=== PATIENT | male | born 1975 | race American Indian/Alaskan Native ===

== ENCOUNTER 2021-10-29 20:09 | Emergency (ER) | payer SELFPAY ==
[2021-10-30] MEDS ORDERED: dexAMETHasone 4 MG/ML VIAL IM ONE (03:23)
[2021-10-30] MEDS ORDERED: PENICILLIN G BENZATHINE 1.2 MILLION UNIT/2 ML INJ IM STA (03:23)
[2021-10-30] MEDS ORDERED: oxyCODONE /ACETAMINOPHEN 5-325MG TAB PO ONE (03:24)
--- NOTE | 2021-10-30 04:19 | Emergency Department Report ---
ED ENT HPI - General Chief complaint: Sore Throat Stated complaint: SORE THROAT Time Seen by Provider: 10/30/21 02:14 Source: patient Mode of arrival: Ambulatory Limitations: No Limitations - History of Present Illness Initial comments: 46-year-old male presents emerged department complaining of a few day history of progressive worsening sore throat with pain to the neck and left-sided face. Pain began to radiate to the left ear from time to time associated with fever sensation. Reports no chest pain, no palpitations, no nausea, no vomiting, no diarrhea, no constipation, no rashes. MD complaint: sore throat -: Gradual Location: throat Severity: mild, moderate Quality: dull Improves with: none Worsens with: swallowing, eating - Related Data Previous Rx's Medication Instructions Recorded Last Taken Type Ketorolac [Toradol] 10 mg PO Q6H PRN #15 tablet 10/30/21 Unknown Rx Lidocaine Viscous 2% 5 ml MM Q3H PRN #120 udc 10/30/21 Unknown Rx Allergies Allergy/AdvReac Type Severity Reaction Status Date / Time No Known Allergies Allergy Unverified 10/29/21 20:20 ED Dental HPI - General Chief complaint: Sore Throat Stated complaint: SORE THROAT Time Seen by Provider: 10/30/21 02:14 Source: patient Mode of arrival: Ambulatory Limitations: No Limitations - Related Data Previous Rx's Medication Instructions Recorded Last Taken Type Ketorolac [Toradol] 10 mg PO Q6H PRN #15 tablet 10/30/21 Unknown Rx Lidocaine Viscous 2% 5 ml MM Q3H PRN #120 udc 10/30/21 Unknown Rx Allergies Allergy/AdvReac Type Severity Reaction Status Date / Time No Known Allergies Allergy Unverified 10/29/21 20:20 ED Review of Systems ROS: Stated complaint: SORE THROAT Other details as noted in HPI Comment: All other systems reviewed and negative ED Past Medical Hx - Past Medical History Previous Medical History?: No - Surgical History Past Surgical History?: No - Medications Home Medications: Home Medications Medication Instructions Recorded Confirmed Last Taken Type Ketorolac [Toradol] 10 mg PO Q6H PRN #15 tablet 10/30/21 Unknown Rx Lidocaine Viscous 2% 5 ml MM Q3H PRN #120 udc 10/30/21 Unknown Rx ED Physical Exam - General Limitations: No Limitations General appearance: alert, in no apparent distress - Head Head exam: Present: atraumatic, normocephalic - Eye Eye exam: Present: normal appearance - ENT ENT exam: Present: mucous membranes moist, other (Exudate which she) - Neck Neck exam: Present: normal inspection, lymphadenopathy - Respiratory Respiratory exam: Present: normal lung sounds bilaterally. Absent: respiratory distress - Cardiovascular Cardiovascular Exam: Present: regular rate, normal rhythm. Absent: systolic murmur, diastolic murmur, rubs, gallop - GI/Abdominal GI/Abdominal exam: Present: soft, normal bowel sounds - Rectal Rectal exam: Present: deferred - Extremities Exam Extremities exam: Present: normal inspection - Back Exam Back exam: Present: normal inspection - Neurological Exam Neurological exam: Present: alert, oriented X3 - Psychiatric Psychiatric exam: Present: normal affect, normal mood - Skin Skin exam: Present: warm, dry, intact, normal color. Absent: rash ED Course Vital Signs 10/29/21 20:20 Temperature 99.8 F H Pulse Rate 88 Respiratory 16 Rate Blood Pressure 140/59 [Right] O2 Sat by Pulse 98 Oximetry ED Medical Decision Making - Medical Decision Making 46-year-old -Citizen Of [place] male with no history of any compromised nontoxic appearance patient is euvolemic with no trismus no airway compromise unable to tolerate p.o. given history and examination low suspicion for this presentation being caused by peritonsillar abscess, Blayne, bacterial tracheitis, acute HIV, epiglottitis, retropharyngeal abscess. He was treated for pneumonia department with IM dose of Bicillin per his request in conjunction with Decadron to promote reduction in inflammation and mild swelling noted in the posterior pharynx. Critical care attestation.: If time is entered above; I have spent that time in minutes in the direct care of this critically ill patient, excluding procedure time. ED Disposition Clinical Impression: Pharyngitis Disposition: 01 HOME / SELF CARE / HOMELESS Is pt being admited?: No Does the pt Need Aspirin: No Condition: Stable Instructions: Sore Throat, [id number], Strep Throat, Adult, [id number], Pharyngitis Prescriptions: Lidocaine Viscous 2% 5 ml MM Q3H PRN #120 udc PRN Reason: Pain, Moderate (4-6) Ketorolac [Toradol] 10 mg PO Q6H PRN #15 tablet PRN Reason: Pain Referrals: [facility] [Provider Group] - 3-5 Days
[2021-10-30 04:42] VITALS: BP 142/63
== END 2021-10-30 18:08 | disposition home or self-care (01) ==
LOC: ED 20:09
DX: J02.9 Acute pharyngitis, unspecified (principal); Z79.899 Other long term (current) drug therapy
CPT/HCPCS: 96372; 99282; J0561; J1100